=== PATIENT | female | born 1985 | race Caucasian/White ===

== ENCOUNTER 2019-10-24 09:59 | Observation (INO) ==
[2019-10-24] MEDS ORDERED: *HR* LORazepam 1 MG TABLET PO ONE (10:43)
[2019-10-24 10:56] LABS: Basophils % 0.2 %; Eosinophils # 0.1 K/mcL (0.0-0.6); Eosinophils % 0.3 %; Hematocrit 45.8 % (35.3-44.9); Hemoglobin 16.1 g/dL (11.5-15.4); Immature Granulocytes % 0.6 % (0-4); Lymphocytes # 2.7 K/mcL (0.6-4.6); Lymphocytes % 17.7 %; Mean Corpuscular HGB Conc 35.2 g/dL (31.6-35.5); Mean Corpuscular Hemoglobin 30.6 pg (28.0-33.3); Mean Corpuscular Volume 86.9 fL (83.0-100.0); Mean Platelet Volume 10.8 fL (9.4-12.4); Monocytes % 6.3 %; Neutrophils # 11.3 K/mcL (1.6-8.9); Platelet Count 315 K/mcL (140-400); Red Blood Count 5.27 M/mcL (3.82-4.97); Red Cell Distribution Width 13.2 % (11.5-14.5); Segmented Neutrophils % 74.9 %; White Blood Count 15.1 K/mcL (4.3-11.1)
[2019-10-24 10:56] LABS: Bilirubin,Urine Negative (Negative); Blood,Urine Trace-lysed (Negative); Color,Urine Yellow (Yellow); Glucose,Urine (UA) Normal (Normal); Ketones,Urine 15 mg/dL (Negative); Leukocyte Esterase,Urine Trace (Negative); Nitrite,Urine Positive (Negative); Protein,Urine Trace mg/dL (Neg-Trace); Specific Gravity,Urine 1.025 (1.010-1.025); Urobilinogen,Urine Normal (Normal)
[2019-10-24 11:09] LABS: Amphetamine Screen,Urine Negative ng/mL (Cutoff=1000); Barbiturate Screen,Urine Negative ng/mL (Cutoff=200); Benzodiazepines Screen,Urine Positive ng/mL (Cutoff=200); Cannabinoid Screen,Urine Negative ng/mL (Cutoff = 50); Cocaine Screen,Urine Negative ng/mL (Cutoff= 300); Opiate Screen,Urine Negative ng/mL (Cutoff=300); Phencyclidine Screen,Urine Negative ng/mL (Cutoff=25)
[2019-10-24 11:18] LABS: Acetaminophen < 10 mcg/mL (10-20); Alanine Aminotransferase 45 Units/L (7-52); Albumin 4.6 g/dL (3.5-5.7); Albumin/Globulin Ratio 1.5 (1.1-2.2); Alkaline Phosphatase 70 Units/L (34-104); Aspartate Amino Transferase 20 Units/L (13-39); BUN/Creatinine Ratio 15 (6-26); Bilirubin,Direct 0.1 mg/dL (0.0-0.2); Bilirubin,Indirect 0.5 mg/dL (0.0-1.0); Bilirubin,Total 0.6 mg/dL (0.3-1.0); Blood Urea Nitrogen 12 mg/dL (6-20); Calcium 9.4 mg/dL (8.6-10.3); Carbon Dioxide 19 mEq/L (23-29); Chloride 107 mEq/L (98-107); Chol/HDL Ratio 9.5 (0-4.9); Cholesterol 237 mg/dL (< 200); Ethanol < 10 mg/dL (Less than 10); Globulin 3.1 g/dL (2.4-3.5); Glucose 119 mg/dL (70-105); HDL Cholesterol 25 mg/dL (40-59); LDL Cholesterol,Calculated 135 mg/dL (0-99); Osmolality,Calculated 287 (280-300); Potassium 3.5 mEq/L (3.5-5.1); Salicylate < 2.5 mg/dL (15.0-30.0); Sodium 138 mEq/L (136-145); Total Protein 7.7 g/dL (6.4-8.9); Triglycerides 385 mg/dL (< 150); eGFR For African Americans > 60 (> 60); eGFR For Non-African Americans > 60 (> 60)
[2019-10-24 11:18] LABS: Bacteria,Urine Many per hpf (None-Few); Hyaline Casts,Urine None Seen per lpf (None-Few); Squamous Epithelial Cell,Urine Many per lpf (None-Few); WBC,Urine 15-30 per hpf (0-3)
[2019-10-24 11:29] LABS: Thyroid Stimulating Hormone 1.452 mcIU/mL (0.340-5.600)
[2019-10-24 11:36] LABS: Mucus,Urine Few per lpf (Few); RBC,Urine 0-3 per hpf (0-3)
[2019-10-24 11:37] LABS: Transitional Epi Cells,Urine Few per hpf (None-Few)
[2019-10-24 11:47] LABS: Clarity,Urine Slightly Cloudy (Clear)
[2019-10-24] MEDS ORDERED: Ibuprofen 400 MG TABLET PO PRN (15:54)
[2019-10-24] MEDS ORDERED: traZODone 50 MG TABLET PO PRN (15:54)
[2019-10-24] MEDS ORDERED: Nicotine 2 MG GUM BC PRN (15:54)
[2019-10-24] MEDS ORDERED: MOM Conc 10 ML UD.LIQ PO PRN (15:54)
[2019-10-24] MEDS ORDERED: Mag Hydrox/Al Hydrox/Simeth 30 ML UDC PO PRN (15:54)
[2019-10-24] MEDS ORDERED: Haloperidol Lactate 5 MG/ML VIAL IM PRN (15:54)
[2019-10-24] MEDS: hydrOXYzine pamoate 25 MG CAPSULE PO PRN (19:12)
[2019-10-25 08:11] VITALS: BP 124/82
[2019-10-25] MEDS: hydrOXYzine pamoate 25 MG CAPSULE PO PRN (08:14)
[2019-10-25] MEDS ORDERED: ALPRAZolam 0.5 MG TABLET PO ONE (10:04)
== END 2019-10-25 12:00 | disposition home or self-care (01) ==
LOC: EMEROOARM 09:59 → 1ANU 14:29 → INTOOBSV 14:29 → 1ANU 15:33
PROVIDERS: ADMIT Psychiatry & Neurology Psychiatry; ATTEND Psychiatry & Neurology Psychiatry